=== PATIENT | male | born 1945 | race Caucasian/White ===

== ENCOUNTER 2016-09-09 10:36 | Observation (INO) | payer MEDICARE, OTHER ==
[~2016-09-09] VITALS: Ht 190.5 cm; Wt 109.0 kg
[~2016-09-09 10:36] MED LIST: ALFU10TA PO; ASPI-515 PO; ASPI-650 PO; ATOR40TA PO; CELE200C PO; EZET10TA3 PO; LOSA50TA6 PO; OMEP-110 PO; PRAS10TA4 PO; TADA20TA PO
[2016-09-09] MEDS ORDERED: CEFAZOLIN PMX 1GM/50ML 50 ML IVPB ONE (13:00)
[2016-09-09 13:12] VITALS: BP 143/101
[2016-09-09 13:31] LABS: HEMOGLOBIN 16.3 g/dL (13.7-18.0)
[2016-09-09 13:44] LABS: ASPARTATE AMINO TRANSFERASE 22 U/L (15-37); BLOOD UREA NITROGEN 20 mg/dL (7-18)
[2016-09-09] MEDS ORDERED: PLEASE ENTER HEIGHT AND WEIGHT MC SCH (14:00)
[2016-09-09] MEDS ORDERED: MIDAZOLAM 1 MG/ML, 5ML ONE (14:34)
[2016-09-09] MEDS ORDERED: FENTANYL PF 100 MCG/2ML ONE (14:34)
[2016-09-09] MEDS ORDERED: LIDOCAINE 2%, 20ML ONE (14:34)
[2016-09-09] MEDS ORDERED: CEFAZOLIN PMX 1GM/50ML 50 ML ONE (14:35)
[2016-09-09] MEDS ORDERED: CEFAZOLIN 1,000 MG ONE (14:35)
[2016-09-09] MEDS ORDERED: ACETAMINOPHEN 325 MG TABLET PO PRN (16:00)
[2016-09-09] MEDS ORDERED: ZOLPIDEM 5MG TABLET PO PRN (16:00)
[2016-09-09] MEDS ORDERED: HYDROcodone/APAP 5/325 TABLET PO PRN (16:00)
[2016-09-09] MEDS: SODIUM CHLORIDE 0.9% 1,000 ML IV SCH ×2 (17:29→20:57)
[2016-09-09] MEDS: CELECOXIB MC SCH ×2 (18:00→21:56)
[2016-09-09] MEDS: TADALAFIL MC SCH ×2 (18:00→21:56)
[2016-09-09 20:25] VITALS: BP 139/80
[2016-09-09] MEDS ORDERED: ATORVASTATIN 40 MG TABLET PO SCH (21:00)
[2016-09-09] MEDS: SODIUM CHLORIDE FLUSH 10ML SYR IVF SCH (21:02)
[2016-09-09] MEDS: CEFAZOLIN PMX 1GM/50ML 50 ML IVPB SCH (22:56)
[2016-09-10 02:00] VITALS: BP 124/64
[2016-09-10] MEDS: SODIUM CHLORIDE 0.9% 1,000 ML IV SCH (04:57)
[2016-09-10] MEDS: CEFAZOLIN PMX 1GM/50ML 50 ML IVPB SCH (06:24)
[2016-09-10] MEDS ORDERED: OMEPRAZOLE 20 MG CAPSULE.DR PO SCH (07:30)
[2016-09-10 07:44] VITALS: BP 138/84
[2016-09-10] MEDS ORDERED: EZETIMIBE 10 MG TABLET PO SCH (09:00)
[2016-09-10] MEDS ORDERED: TAMSULOSIN 0.4 MG CAP.ER.24H PO SCH (09:00)
[2016-09-10] MEDS ORDERED: LOSARTAN 50MG TABLET PO SCH (09:00)
[2016-09-10] MEDS: CELECOXIB MC SCH (09:12)
[2016-09-10] MEDS: TADALAFIL MC SCH (09:12)
[2016-09-10] MEDS: SODIUM CHLORIDE FLUSH 10ML SYR IVF SCH (09:12)
[2016-09-10] MEDS ORDERED: HYDR-3240 PO (10:04)
== END 2016-09-10 12:15 | disposition home or self-care (01) ==
LOC: CACL 10:36 → 5SO 15:48 → DCLOUNGE 09-10 11:06
PROVIDERS: ADMIT Internal Medicine; ATTEND Internal Medicine
DX: I49.5 Sick sinus syndrome (principal); I25.810 Atherosclerosis of coronary artery bypass graft(s) without angina pectoris; E78.5 Hyperlipidemia, unspecified; I10 Essential (primary) hypertension; Z95.1 Presence of aortocoronary bypass graft
CPT/HCPCS: 33208; 36415; 71010; 71020; 80053; 85025; 85610; 93005; 96365; 96375; C1779; C1785; C1892; G0378; J0690; J2250; J3010; J3490

== ENCOUNTER 2017-03-12 10:22 | Day surgery (SDC) | payer MEDICARE, OTHER ==
[~2017-03-12] VITALS: Ht 190.5 cm; Wt 109.1 kg
[~2017-03-12 10:22] MED LIST changes: +EZET10TA18 PO; -EZET10TA3 PO; +HYDR-3240 PO
[2017-03-12 12:34] VITALS: BP 155/98
[2017-03-12] MEDS ORDERED: DIGO125T PO (12:44)
[2017-03-12] MEDS ORDERED: DABI150C PO (12:44)
[2017-03-12] MEDS ORDERED: METO50TA4 PO (12:44)
[2017-03-12] MEDS ORDERED: MIDAZOLAM 1 MG/ML, 5ML ONE ×2 (12:52→12:53)
[2017-03-12] MEDS ORDERED: FENTANYL PF 100 MCG/2ML ONE (12:53)
[2017-03-12] MEDS ORDERED: MIDAZOLAM 1 MG/ML, 2ML IV ONE (13:00)
[2017-03-12] MEDS ORDERED: FENTANYL PF 100 MCG/2ML IV ONE (13:00)
[2017-03-12] MEDS ORDERED: PLEASE ENTER HEIGHT AND WEIGHT MC SCH (13:00)
== END 2017-03-12 15:01 | disposition home or self-care (01) ==
LOC: CACL 10:22
PROVIDERS: ATTEND Internal Medicine Cardiovascular Disease
DX: I48.91 Unspecified atrial fibrillation (principal); E78.5 Hyperlipidemia, unspecified; I10 Essential (primary) hypertension; Z95.1 Presence of aortocoronary bypass graft
CPT/HCPCS: 36415; 80162; 92960; J2250; J3010

== ENCOUNTER 2018-09-15 09:59 | Day surgery (SDC) | payer MEDICARE, OTHER ==
[~2018-09-15 09:59] MED LIST changes: +DABI150C PO; +DIGO125T PO; +LOSA50TA14 PO; -LOSA50TA6 PO; +METO50TA4 PO
[2018-09-15] MEDS ORDERED: SODIUM CHLORIDE 0.9% 500 ML IV PRN (10:51)
[2018-09-15] MEDS ORDERED: METO25TA2 PO (11:01)
[2018-09-15] MEDS ORDERED: PROPOFOL 10 MG/ML, 20ML ONE (11:52)
== END 2018-09-15 12:45 | disposition home or self-care (01) ==
LOC: CACL 09:59
PROVIDERS: ATTEND Internal Medicine Cardiovascular Disease
DX: I48.92 Unspecified atrial flutter (principal); I48.0 Paroxysmal atrial fibrillation; I25.10 Atherosclerotic heart disease of native coronary artery without angina pectoris; E78.5 Hyperlipidemia, unspecified; I10 Essential (primary) hypertension; Z95.0 Presence of cardiac pacemaker
CPT/HCPCS: 92960; 93005; J2704

== ENCOUNTER → 2019-12-28 | Outpatient (CLI) | payer MEDICARE, OTHER ==
[~2019-12-28] MED LIST changes: -DIGO125T PO; +DIGO125T85 PO; -EZET10TA18 PO; +EZET10TA70 PO; +METO25TA2 PO; +REGADENOSON 0.4 MG/5 ML SYRINGE ONE
== END | disposition home or self-care (01) ==
LOC: CFH 08:02
PROVIDERS: ATTEND Internal Medicine Cardiovascular Disease
DX: I21.19 ST elevation (STEMI) myocardial infarction involving other coronary artery of inferior wall (principal); I25.9 Chronic ischemic heart disease, unspecified; I25.10 Atherosclerotic heart disease of native coronary artery without angina pectoris
CPT/HCPCS: 78452; 93017; A9502; J2785